=== PATIENT | female | born 1995 | race African-American/Black ===

== ENCOUNTER 2020-09-10 02:29 | Emergency (ER) | payer OTHER ==
[~2020-09-10] VITALS: Ht 157.5 cm; Wt 69.5 kg
[2020-09-10] MEDS ORDERED: ACETAMINOPHEN 500 MG TABLET PO ONE (03:00)
[2020-09-10] MEDS ORDERED: CARI6CAP PO (03:14)
[2020-09-10] MEDS ORDERED: QUET25TA PO (03:14)
[2020-09-10] MEDS ORDERED: IBUPROFEN 600 MG TABLET PO ONE (04:15)
[2020-09-10] MEDS ORDERED: PERTUSS(ACELL),DIPH,TET VAC/PF 0.5 ML SYRINGE IM ONE (05:15)
[2020-09-10 06:38] VITALS: BP 115/75
== END 2020-09-10 06:50 | disposition home or self-care (01) ==
LOC: EMS 02:31
DX: S30.810A Abrasion of lower back and pelvis, initial encounter (principal); Y04.0XXA Assault by unarmed brawl or fight, initial encounter; Y93.89 Activity, other specified; Y92.89 Other specified places as the place of occurrence of the external cause; Y99.8 Other external cause status
CPT/HCPCS: 70450; 70486; 72100; 72125; 84703; 90471; 90715; 99285